=== PATIENT | female | born 1985 | race Caucasian/White ===

== ENCOUNTER 2018-01-23 14:02 | Inpatient (IN) | payer OTHER ==
[~2018-01-23] VITALS: Ht 165.1 cm; Wt 67.6 kg
[2018-01-23] MEDS ORDERED: PRENATAL 19 TA1 EAC1 PO (16:06)
== END 2018-01-28 15:38 | disposition home or self-care, planned readmission (81) | DRG 807 ==
LOC: OB/GYN 14:02 → LDR 14:02 → OB/GYN 01-26 05:07
PROC: 10E0XZZ Delivery of Products of Conception, External Approach (ICD-10-PCS; principal; 2018-01-26)
PROC: 4A1HXCZ Monitoring of Products of Conception, Cardiac Rate, External Approach (ICD-10-PCS; 2018-01-26)
DX: O60.14X0 Preterm labor third trimester with preterm delivery third trimester, not applicable or unspecified (principal); Z37.0 Single live birth; Z3A.35 35 weeks gestation of pregnancy